=== PATIENT | male | born 1960 | race Caucasian/White ===

== ENCOUNTER 2018-09-21 06:10 | Day surgery (SDC) | payer MEDICARE, OTHER ==
[~2018-09-21] VITALS: Ht 165.1 cm; Wt 123.9 kg
[~2018-09-21 06:10] MED LIST: INSU100I18 SQ-INSULIN; INSU100V8 SQ; LIRA0.6P2; METF100010 PO; NIAC500T PO; SULF500T5 PO; VALS1TAB19 PO
[2018-09-21] MEDS ORDERED: LACTATED RINGERS 1,000 ML IV SCH (06:53)
[2018-09-21 06:58] VITALS: BP 166/88
[2018-09-21 07:47] LABS: ALANINE AMINOTRANSFERASE 23 U/L (12-78); ALBUMIN 3.5 g/dL (3.4-5.0); ANION GAP 8 mmol/L (5-15); CALCIUM 8.7 mg/dL (8.5-10.1); CHLORIDE 103 mmol/L (98-107); CREATININE 0.58 mg/dL (0.7-1.3)
[2018-09-21 07:50] LABS: ALKALINE PHOSPHATASE 109 U/L (45-117); BILIRUBIN,TOTAL 0.3 mg/dL (0.2-1.0); TOTAL PROTEIN 6.8 g/dL (6.4-8.2)
[2018-09-21] MEDS ORDERED: PROPOFOL 10 MG/ML, 20ML ONE (07:58)
[2018-09-21] MEDS ORDERED: LABETALOL 5MG/ML, 20ML IV PRN (09:00)
[2018-09-21] MEDS ORDERED: OXYcodone 5 MG/5 ML ORAL.SOL UDC PO PRN (09:00)
[2018-09-21] MEDS ORDERED: DIAZEPAM 5 MG/ML, 2ML IVPush PRN (09:00)
[2018-09-21] MEDS ORDERED: HALOPERIDOL 5 MG/ML IV PRN (09:00)
[2018-09-21] MEDS ORDERED: FENTANYL PF 100 MCG/2ML IV PRN (09:00)
[2018-09-21] MEDS ORDERED: MEPERIDINE/PF 25MG/0.5ML IVPush PRN (09:00)
[2018-09-21] MEDS ORDERED: MIDAZOLAM 1 MG/ML, 2ML IV PRN (09:00)
[2018-09-21] MEDS ORDERED: ALBUTEROL SULFATE 2.5 MG/3 ML NPPB PRN (09:00)
[2018-09-21] MEDS ORDERED: PROMETHAZINE 25 MG/ML, 1ML IV PRN (09:00)
[2018-09-21] MEDS ORDERED: MORPHINE SULFATE 4 MG/ML, 1ML IVPush PRN (09:00)
[2018-09-21] MEDS ORDERED: HYDROmorphone 2 MG/ML, 1ML IVPush PRN (09:00)
[2018-09-21] MEDS ORDERED: ONDANSETRON ODT 8 MG PO PRN (09:00)
[2018-09-21] MEDS ORDERED: PROMETHAZINE 12.5 MG SUPP PR PRN (09:00)
[2018-09-21] MEDS ORDERED: hydrALAzine 20 MG/ML, 1ML IV PRN (09:00)
[2018-09-21] MEDS ORDERED: EPHEDRINE 50 MG/ML, 1ML IVPush PRN (09:00)
[2018-09-21] MEDS ORDERED: ONDANSETRON 2MG/ML, 2ML IV PRN (09:00)
== END 2018-09-21 10:00 | disposition home or self-care (01) ==
LOC: OUT 06:10
PROVIDERS: ATTEND Internal Medicine Gastroenterology
DX: D12.4 Benign neoplasm of descending colon (principal); K51.40 Inflammatory polyps of colon without complications; K51.90 Ulcerative colitis, unspecified, without complications; K62.89 Other specified diseases of anus and rectum; E03.9 Hypothyroidism, unspecified; E78.5 Hyperlipidemia, unspecified; E11.9 Type 2 diabetes mellitus without complications; I10 Essential (primary) hypertension; E66.01 Morbid (severe) obesity due to excess calories; Z68.45 Body mass index [BMI] 70 or greater, adult; Z79.4 Long term (current) use of insulin
CPT/HCPCS: 36415; 45380; 45385; 80053; 82962; 88305; 93005; J2704; J7120